=== PATIENT | male | born 1960 | race Caucasian/White ===

== ENCOUNTER 2019-02-22 16:56 | Emergency (ER) | payer MEDICARE ==
[2019-02-22 17:10] VITALS: RESP 18
--- NOTE | 2019-02-22 18:08 | ED ---
Psych HPI - General Chief Complaint: Psychiatric Symptoms Stated Complaint: Mental health Time Seen by Provider: 02/22/19 17:55 Source: patient Mode of arrival: ambulatory - History of Present Illness Initial Comments: This 59-year-old white male presents with his niece who is his guardian with a complaint of some depression. He states that he's had this for the past 2 months. It is been associated with some anxiety as well. He takes medication for it with limited relief. His niece relates that he also has a history of bipolar disorder and dementia. He has been in his own apartment for the last week and this apparently has not been going well. She states that he has a history of alcohol abuse and has apparently been drinking in his apartment. He also has a history of narcotic abuse. In addition, she is fairly certain that he is not taking his normal medications. She states that they can only afford to get him 4 hours of care per week but this is not working out well for him. She thinks is only needs get placed into a nursing home. He denies any medical complaints. No other modifying factors. - Related Data Home Medications Medication Instructions Recorded Confirmed ARIPiprazole [Abilify] 5 mg PO HS 02/22/19 02/22/19 Citalopram Hydrobromide [CeleXA] 20 mg PO DAILY 02/22/19 02/22/19 Gabapentin [Neurontin] 100 mg PO BID 02/22/19 02/22/19 Ibuprofen [Motrin] 800 mg PO Q8H PRN 02/22/19 02/22/19 Allergies Allergy/AdvReac Type Severity Reaction Status Date / Time No Known Allergies Allergy Verified 02/22/19 18:38 Review of Systems ROS Statement: Those systems with pertinent positive or pertinent negative responses have been documented in the HPI. ROS Other: All systems not noted in ROS Statement are negative. Past Medical History Past Medical History: No Reported History History of Any Multi-Drug Resistant Organisms: None Reported Additional Past Surgical History / Comment(s): BACK SURGERY Past Psychological History: No Psychological Hx Reported Smoking Status: Current every day smoker Past Alcohol Use History: Occasional Past Drug Use History: None Reported General Exam - General Exam Comments Initial Comments: GENERAL: The patient is well nourished and well hydrated. VITAL SIGNS: Heart rate, blood pressure, respiratory rate reviewed as recorded in nurse's notes. EYES: Pupils are round and reactive. Extraocular movements are intact. No conjunctival / lid redness or swelling. ENT: No external evidence of injury, swelling, or ecchymosis. Airway is patent. Throat is clear. NECK: Nontender. No swelling or evidence of injury. No subcutaneous emphysema. Trachea is midline. No thyroid mass. HEART: Regular rate and rhythm. Good peripheral pulses. LUNGS/CHEST: Breath sounds clear and equal bilaterally. No rales, rhonchi, or wheezes. No ecchymosis, subcutaneous emphysema, or tenderness. ABDOMEN: Abdomen soft without tenderness. No palpable masses or organomegaly. No peritoneal signs. No abdominal wall swelling or ecchymosis. EXTREMITIES: No extremity tenderness. Normal muscle tone and function. No thoracolumbar tenderness. NEUROLOGIC: Sensation is grossly intact. Cranial nerve exam reveals face is symmetrical, tongue is midline, speech is clear. SKIN: No abrasions or ecchymosis is noted. No induration or masses noted. PSYCHIATRIC: Alert and oriented. Appropriate behavior and judgment. Limitations: no limitations Course Vital Signs 02/22/19 02/22/19 17:06 18:00 Temperature 97.8 F Pulse Rate 100 Respiratory 18 Rate Blood Pressure 130/82 128/78 O2 Sat by Pulse 99 99 Oximetry Medical Decision Making - Medical Decision Making The patient was seen and examined. All diagnostics are reviewed. It is felt as though he is medically cleared for further psychiatric evaluation. The case is discussed with the psychiatric nurse and they have evaluated him and they feel as though he stable for discharge. He is not having any suicidal or homicidal ideations. He does not appear to be psychotic. He may have a degree of dementia but appears to be well psychologically at this point. It appears that he may eventually need placement into an adult foster care facility but they're currently working with [facility] on an outpatient basis to get this set up. The psych iatric team does not feel as though he needs inpatient treatment at this time. They recommend discharge and continue with follow-up with [facility]. - Lab Data Lab Results 02/22/19 Range/Units 18:01 Urine Opiates Screen Not Detected (NotDetected) Ur Oxycodone Screen Not Detected (NotDetected) Urine Methadone Screen Not Detected (NotDetected) Ur Propoxyphene Screen Not Detected (NotDetected) Ur Barbiturates Screen Not Detected (NotDetected) U Tricyclic Antidepress Not Detected (NotDetected) Ur Phencyclidine Scrn Not Detected (NotDetected) Ur Amphetamines Screen Not Detected (NotDetected) U Methamphetamines Scrn Not Detected (NotDetected) U Benzodiazepines Scrn Not Detected (NotDetected) Urine Cocaine Screen Not Detected (NotDetected) U Marijuana (THC) Screen Not Detected (NotDetected) Disposition Clinical Impression: Depression, Bipolar disorder, History of alcohol abuse, Noncompliance with medication regimen, Acute anxiety Disposition: HOME SELF-CARE Condition: Good Instructions (If sedation given, give patient instructions): Depression (ED), Anxiety (ED) Additional Instructions: Please also follow-up with the psychiatric team's recommendations. Is patient prescribed a controlled substance at d/c from ED?: No Referrals: None,Stated [Primary Care Provider] - 1-2 days Time of Disposition: 20:40
[2019-02-22 20:20] LABS: Amphetamine Screen,Urine Not Detected (NotDetected); Barbiturate Screen,Urine Not Detected (NotDetected); Benzodiazepines Screen,Urine Not Detected (NotDetected); Cocaine Screen,Urine Not Detected (NotDetected); Methadone Screen, Urine Not Detected (NotDetected); Opiate Screen,Urine Not Detected (NotDetected); Oxycodone Screen, Urine Not Detected (NotDetected); Phencyclidine Screen,Urine Not Detected (NotDetected); Tricyclic Antidepressant,Urine Not Detected (NotDetected); Urn Cannabinoid Scrn Not Detected (NotDetected)
[2019-02-22 20:58] VITALS: BP 126/78; PULSE 88; TEMP 97
== END 2019-02-22 21:02 | disposition home or self-care (01) ==
LOC: EC 16:56 → EEVIPCON 16:56 → EC 21:02
DX: F31.9 Bipolar disorder, unspecified (principal); F41.9 Anxiety disorder, unspecified; F03.90 Unspecified dementia, unspecified severity, without behavioral disturbance, psychotic disturbance, mood disturbance, and anxiety; F17.200 Nicotine dependence, unspecified, uncomplicated; Z91.14 Patient's other noncompliance with medication regimen; Z79.899 Other long term (current) drug therapy; Z86.59 Personal history of other mental and behavioral disorders
CPT/HCPCS: 80306; 82075; 99284